=== PATIENT | female | born 1970 | race Hispanic/Latino ===

== ENCOUNTER 2021-09-23 11:11 | Emergency (ER) | payer BC ==
--- OUTSIDE RECORDS SUMMARY | 2021-09-23 11:14 | XMS REPORT | Continuity of Care Document ---
:1970 Author Organization [facility] t Address [address] [place] [address] Care Team Providers Name Role Phone JAMEE Attending Clinician Unavailable Olive Vasquez Attending Clinician Unavailable SURESH Attending Clinician Unavailable WENDI Attending Clinician Unavailable Olive Vasquez Admitting Clinician Unavailable Payers Payer Name Policy Type Policy Number Effective Date Expiration Date S ource Problems This patient has no known problems. Allergies, Adverse Reactions, Alerts Allergy Allergy Status Severity Reaction(s) Onset Inactive Treating Comm ents Source Name Type Date Date Clinician No Known DA Active U 2008-0 [facility] Contrast 5-15 Clear Allergie 00:00: Saini s [facility] No Known DA Active U 2008-0 [facility] Drug 5-15 Clear Allergie 00:00: Saini s [facility] No Known DA Active U 2008-0 [facility] Food 5-15 Clear Allergie 00:00: Saini s [facility] No Known DA Active U 2008-0 [facility] Other 5-15 Clear Allergie 00:00: Saini s [address] [place] [address] Medications This patient has no known medications. Procedures This patient has no known procedures. Encounters Start End Encounter Admission Attending Care Care Encounter Source Date/Time Date/Time Type Type Clinicians Facility Department ID 2021-09-17 2021-09-17 Outpatient [facility] [id number] [place] 00:00:00 00:00:[address] 2021-09-16 2021-09-16 Outpatient RHEA [facility] [id number] [place] 00:00:00 00:00:00 Maximo MANCERA [facility] [address] 2021-05-14 2021-05-14 Outpatient [facility] HCACL LORA HA1 [id number] [facility] 12:00:00 12:00:00 Aracelis gonzales [id number] [facility] 2020-12-01 2020-12-01 Outpatient CHRISTINA PRINCE [facility] [id number] [place] 00:00:00 00:00:[address] 2020-04-30 2020-04-30 Outpatient CHITTIMIRED [facility] [id number] [place] 00:00:00 00:00:00 DY, [address] 2020-04-14 2020-04-14 Outpatient [facility] HCABM LORA [id number] [facility] 12:00:00 12:00:00 Aracelis gonzales [id number] [facility] 2020-04-14 2020-04-14 Outpatient EL [facility] HCABM LORA HA1 [id number] [facility] 12:00:00 12:00:00 Aracelis gonzales [id number] [facility] 2019-12-18 2019-12-18 Outpatient CHRISTINA PRINCE [facility] [id number] [place] 00:00:00 00:00:[address] 2019-08-27 2019-08-27 Outpatient CHRISTINA PRINCE [facility] [id number] [place] 00:00:00 00:00:[address] Results Test Description Test Time Test Comments Results Result Sour e Comments - MAMMO SCR CAD BI 2017-07-20 07:05:00 [facility] 1970 Sex: F FAX: Aracelis Martins [phone] [place]: St: UN Name: GA MIRELESMAYOR Breast Diagnostic : 1970 Age/S: 46/F [address] Unit #: [id number] Loc: [place] [address] Phys: Aracelis Vasquez MD Acct: [id number] Dis Date: Status: UNK PHONE #: [phone] Exam Date: 07/19/2017 0853 FAX #: Reason: SCREENING EXAMS: CPT CODE: [id number] [place] [address] DIGITAL BILATERAL SCREENING MAMMOGRAM WITH CAD: HISTORY: 46 years old. Female. Previous fibrocystic changes.. COMPARISON STUDIES: Back to 2013. TECHNIQUE: 2D digital mammographic images with CAD. BREAST COMPOSITION: The breast tissue is heterogeneously dense, which may obscure small masses. FINDINGS: Stable mild fibrocystic changes in the left breast. No suspicious calcifications or suspicious masses are seen. IMPRESSION: BI-RADS Category 2: Benign findings. RECOMMENDATION: Bilateral screening mammogram in 1 year. THANK YOU FOR ALLOWING US TO PARTICIPATE IN THE CARE OF YOUR PATIENT. FO R INTERNAL CODING PURPOSES ONLY RESULT CODE: 2 FOLLOW UP: N SL: 106 at 0705 Reported and signed by: Alesia Castro M.D. CC: Aracelis Maradiaga Technologist: MITZY MODI)(M) Trnscrd Date/Time/By: 07/20/2017 (07) : By: SoilaBD Orig Print D/T: S: 07/20/2017 (0708) PAGE 1 Signed Report - US BRST W AX 2016-06-02 COMP UNI LT 09:51:00 [facility] [place] [facility] : 1970 Sex: F FAX: Aracelis Martins [phone] [place]: St: UNK Name: GA MIRELES Breast Diagnostic : 1970 Age/S: 45/F [address] Unit #: [id number] Loc: [place] [address] Phys: Aracelis Vasquez MD Acct: [id number] Dis Date: Status: [facility] PHONE #: [phone] Exam Date: 06/02/2016 0936 FAX #: Reason: LEFT BREAST ASYMMETRIES EXAMS: CPT CODE: [id number] [place] [address] DIGITAL LEFT DIAGNOSTIC MAMMOGRAM WITH CAD: HISTORY: 45-year-old asymptomatic female called back from April 2016 screening exam for further evaluation of left upper outer quadrant asymmetry. COMPARISON STUDIES: Dating back to 2010. BREAST COMPOSITION: The breast tissue is heterogeneously dense, which may obscure small masses. FINDINGS: Additional views demonstrate multiple oval masses with partially circumscribed and partially obscured margins in the upper outer left breast. Ultrasound to be performed for further evaluation. LEFT ULTRASOUND: FINDINGS: Left whole breast ultrasound was performed, including evaluation of all four quadrants of the breast, the retroareolar region, and the axilla. Special attention was made to the regions of the questioned mammographic findings. Left breast fibrocystic changes are identified, documented at 1 o'clock, 2 o'clock, and 7 o'clock. Sonographic findings correlate to mammographic findings. There are no suspicious sonographic findings in the left breast. Specifically, there are no suspicious findings in the regions of the questioned mammographic findings. The left axilla appears unremarkable. IMPRESSION: BI-RADS Category 2: Benign findings. RECOMMENDATION: Bilateral screening mammogram will be due April 2017. Results and recommendations were provided to the patient under direction of the physician at the conclusion of the exam. THANK YOU FOR ALLOWING US TO PARTICIPATE IN THE CARE OF YOUR PATIENT. FO R INTERNAL CODING PURPOSES ONLY RESULT CODE: 2 PAGE 1 Signed Report (CONTINUED) FAX: Aracelis Martins [phone] [place]: GO St: UNK Name: GA MIRELESMAYOR Breast Diagnostic : 1970 Age/S: 45/F [address] Unit #: [id number] Loc: [place] [address] Phys: Aracelis Vasquez MD Acct: [id number] Dis Date: Status: UNK PHONE #: [phone] Exam Date: 06/02/2016 0936 FAX #: Reason: LEFT BREAST ASYMMETRIES EXAMS: CPT CODE: [id number] [place] [address] <Continued> FOLLOW UP: N SL: 106 at 0951 Reported and signed by: Aide Lamar M.D. CC: Aracelis Maradiaga Technologist: Carolyn Bradley RDMS(BR)(AB) Trnscrd Date/Time/By: 06/02/2016 (0951) : By: [email or web address] Orig Print D/T: S: 06/02/2016 (0983) PAGE 2 Signed Report - MAMMO DIAG CAD 2016-06-02 UNI LT 09:51:00 [facility] [place] MI[facility]LES MARIALUISA : 1970 Sex: F FAX: Aracelis Martins [phone] [place]: DAILY St: [place] Name: GA MIRELES Breast Diagnostic : 1970 Age/S: 45/F [address] Unit #: [id number] Loc: [place] [address] Phys: Aracelis Vasquez MD Acct: [id number] Dis Date: Status: UNK PHONE #: [phone] Exam Date: 06/02/2016901 FAX #: Reason: LEFT ASYMMETRIES EXAMS: CPT CODE: [id number] [place] [address] DIGITAL LEFT DIAGNOSTIC MAMMOGRAM WITH CAD: HISTORY: 45-year-old asymptomatic female called back from April 2016 screening exam for further evaluation of left upper outer quadrant asymmetry. COMPARISON STUDIES: Dating back to 2010. BREAST COMPOSITION: The breast tissue is heterogeneously dense, which may obscure small masses. FINDINGS: Additional views demonstrate multiple oval masses with partially circumscribed and partially obscured margins in the upper outer left breast. Ultrasound to be performed for further evaluation. LEFT ULTRASOUND: FINDINGS: Left whole breast ultrasound was performed, including evaluation of all four quadrants of the breast, the retroareolar region, and the axilla. Special attention was made to the regions of the questioned mammographic findings. Left breast fibrocystic changes are identified, documented at 1 o'clock, 2 o'clock, and 7 o'clock. Sonographic findings correlate to mammographic findings. There are no suspicious sonographic findings in the left breast. Specifically, there are no suspicious findings in the regions of the questioned mammographic findings. The left axilla appears unremarkable. IMPRESSION: BI-RADS Category 2: Benign findings. RECOMMENDATION: Bilateral screening mammogram will be due April 2017. Results and recommendations were provided to the patient under direction of the physician at the conclusion of the exam. THANK YOU FOR ALLOWING US TO PARTICIPATE IN THE CARE OF YOUR PATIENT. FO R INTERNAL CODING PURPOSES ONLY RESULT CODE: 2 PAGE 1 Signed Report (CONTINUED) FAX: Aracelis Martins [phone] [place]: St: UNK Name: GA MIRELES MARIALUISA Breast Diagnostic : 1970 Age/S: 45/F [address] Unit #: [id number] Loc: [place] [address] Phys: Aracelis Vasquez MD Acct: [id number] Dis Date: Status: UNK PHONE #: [phone] Exam Date: 06/02/2016 0902 FAX #: Reason: LEFT ASYMMETRIES EXAMS: CPT CODE: [id number] [place] [address] <Continued> FOLLOW UP: N SL: 106 at 0951 Reported and signed by: Aide Lamar M.D. CC: Aracelis Maradiaga Technologist: RT Clif(Lakeshia)(Jose E) Trnscrd Date/Time/By: 06/02/2016 (950) : By: [email or web address] Orig Print D/T: S: 06/02/2016 (09) PAGE 2 Signed Report - MAMMO SCR DDI BI 2016-05-07 12:40:00 [facility] : 1970 Sex: F FAX: Aracelis Martins [phone] [place]: St: UNK Name: GA MIRELES Breast Diagnostic : 1970 Age/S: 45/F [address] Unit #: [id number] Loc: [place] [address] Phys: Aracelis Vasquez MD Acct: [id number] Dis Date: Status: UNK PHONE #: [phone] Exam Date: 05/05/2016 1011 FAX #: Reason: SCREENING EXAMS: CPT CODE: [id number] [place] [address] DIGITAL BILATERAL SCREENING MAMMOGRAM WITH CAD: HISTORY: 45 years old. Female. COMPARISON STUDIES: Dating back to 2007. TECHNIQUE: 2D digital mammographic images with CAD. BREAST COMPOSITION: The breast tissue is heterogeneously dense, which may obscure small masses. FINDINGS: Asymmetry seen in the middle to posterior one-third of left breast just lateral to midline in the craniocaudal view and in the upper middle one-third of left breast just above nipple line level in the MLO projection. No suspicious dominant mass lesions in the right breast. No suspicious calcifications either breast. IMPRESSION: (CATEGORY 0) Incomplete. Need additional Imaging evaluation . Left breast asymmetries requiring further evaluation. RECOMMENDATION: Additional diagnostic mammographic and/or ultrasound evaluation. [facility] will contact the patient to schedule additional imaging (pending orders from referring physician) THANK YOU FOR ALLOWING US TO PARTICIPATE IN THE CARE OF YOUR PATIENT. FO R INTERNAL CODING PURPOSES ONLY RESULT CODE: 0 FOLLOW UP: P SL: 106 at 1240 Reported and signed by: Alesia Castro M.D. PAGE 1 Signed Report (CONTINUED) FAX: Aracelis Martins [phone] [place]: St: UN Name: GA MIRELESMAYOR Breast Diagnostic : 1970 Age/S: 45/F [address] Unit #: [id number] Loc: [place] [address] Phys: Aracelis Vasquez MD Acct: [id number] Dis Date: Status: K PHONE #: [phone] Exam Date: 05/05/2016 1011 FAX #: Reason: SCREENING EXAMS: CPT CODE: [id number] [place] [address] <Continued> CC: Aracelis Maradiaga Technologist: Montserrat Clemons, RT(Lakeshia)(M) Trnscrd Date/Time/By: 05/07/2016 (9744) : By: Smith/Britt rig Print D/T: S: 05/07/2016 (3475) PAGE 2 Signed Report - MAMMO SCR DDI BI 2015-02-19 08:01:00 [facility] [place] [facility] : 1970 Sex: F FAX: Aracelis Martins [phone] [place]: St: UNK Name: GA MIRELES Breast Diagnostic : 1970 Age/S: 44/F [address] Unit #: [id number] Loc: [place] [address] Phys: Aracelis Vasquez MD Acct: [id number] Dis Date: Status: UNK PHONE #: [phone] Exam Date: 02/18/2015 1424 FAX #: Reason: SCREEN EXAMS: CPT CODE: [id number] [place] [address] DIGITAL SCREENING MAMMOGRAM EVALUATED WITH CAD: HISTORY: 44 years old. Female. Asymptomatic. COMPARISON STUDIES: Dating back to 2010. FINDINGS: The breast tissue is heterogeneously dense, which may obscure small masses. Bilateral oval masses with partially circumscribed and partially obscured margins consistent with previously sonographically documented fibrocystic changes. No suspicious calcifications or suspicious masses are seen. No significant interval change. IMPRESSION: BI-RADS Category 2: Benign findings. RECOMMENDATION: Bilateral screening mammogram in one year. THANK YOU FOR ALLOWING US TO PARTICIPATE IN THE CARE OF YOUR PATIENT. FO R INTERNAL CODING PURPOSES ONLY RESULT CODE: 2 FOLLOW UP: N SL: 106 at 0801 Reported and signed by: Aide Lamar M.D. CC: Aracelis Maradiaga Technologist: Shania Carvajal RT(R)(M)(BD) Trnksrd Date/Time/By: 02/19/2015 (800) : By: [email or web address] Orig Print D/T: S: 02/19/2015 (804) PAGE 1 Signed Report - MAMMO SCR DDI BI 2013-10-11 14:54:00 [facility] [place] [facility] : 1970 Sex: F FAX: Aracelis Martins [phone] [place]: St: [place] Name: GA MIRELES Breast Diagnostic : 1970 Age/S: 42/F [address] Unit #: [id number] Loc: [place] [address] Phys: Aracelis Vasquez MD Acct: [id number] Dis Date: Status: UNK PHONE #: [phone] Exam Date: 10/09/2013 0936 FAX #: Reason: SCREENING EXAMS: CPT CODE: [id number] [place] [address] DIGITAL SCREENING MAMMOGRAPHY WITH CAD. HISTORY: 42 years Female, Routine exam. COMPARISON: Back to 10/05/07 with the most recent mammogram of 07/18/12 FINDINGS: The breasts are heterogeneously dense, which may obscure small masses. No significant interval change. No suspicious masses, suspicious cluster of calcifications, or suspicious architectural distortion. IMPRESSION: (BI-RADS CATEGORY 1). Negative. RECOMMENDATION: Annual screening mammographic evaluation. PLEASE SEE BODY OF REPORT AND THANK YOU FOR ALLOWING US TO PARTICIPATE IN THE CARE OF YOUR PATIENT. FO R INTERNAL CODING PURPOSES ONLY RESULT CODE: 1 FOLLOW UP: N SL: 106 at 7649 Reported and signed by: Sanjay Ramos M.D. CC: Aracelis Maradiaga Technologist: Shania Carvajal RT(R)(M)(BD) Trnscrd Date/Time/By: 10/11/2013 (1457) : By: [email or web address] Orig Print D/T: S: 10/11/2013 (2709) PAGE 1 Signed Report - MAMMO SCR DDI BI 2012-07-18 11:32:00 [facility] SIRI MIRELESHERMES BAHENAMAYOR : 1970 Sex: F FAX: Thalia AlcantaraTracy Viraj [phone] [place]: St: UNK FAX: Y Aracelis Vasquez [phone] Name: GA MIRELES Breast Diagnostic : 1970 Age/S: 41/F [address] Unit #: [id number] Loc: [place] [address] Phys: Aracelis Vasquez MD Acct: [id number] Dis Date: Status: UNK PHONE #: [phone] Exam Date: 07/18/2012 1005 FAX #: Reason: SCREENING EXAMS: CPT CODE: [id number] [place] [address] DIGITAL SCREENING MAMMOGRAM EVALUATED WITH CAD: COMPARISON STUDIES: Dating back to 2007. FINDINGS: The breast tissue is heterogeneously dense (approximately 51-75% glandular), which could obscure detection of small masses. No suspicious calcifications or masses are seen. No significant interval change. IMPRESSION: BI-RADS CATEGORY 1: No radiographic evidence of malignancy -- negative. RECOMMENDATION: Bilateral screening mammogram in one year. THANK YOU FOR ALLOWING US TO PARTICIPATE IN THE CARE OF YOUR PATIENT. FO R INTERNAL CODING PURPOSES ONLY RESULT CODE: 1 FOLLOW UP: N at 1132 Reported and signed by: Aide Lamar M.D. CC: Tracy Fall; Aracelis Maradiaga Technologist: LY Beckwith)(Jose E) Trnscrd Date/Time/By: 07/18/2012 (3329) : By: [email or web address] Orig Print D/T: S: 07/18/2012 (9517) PAGE 1 Signed Report - US BREAST UNI/BI 2011-03-04 14:32:00 [facility] [place] [facility] : 1970 Sex: F FAX: Thalia AlcantaraTracy [phone] [place]: St: [facility] FAX: Aracelis Martins [phone] Name: GA MIRELES Breast Diagnostic : 1970 Age/S: 40/F [address] Unit #: [id number] Loc: [place] [address] Phys: Aracelis Vasquez MD Acct: [id number] Dis Date: Status: [employer] PHONE #: [phone] Exam Date: 03/04/2011 1323 FAX #: Reason: F/U TO ABNORMAL MAMMO EXAMS: CPT CODE: [id number] [place] [address] [id number] US BREAST UNI/BI 59930 HISTORY: 40-year-old female who is currently asymptomatic. Prior screening mammogram requested follow-up bilateral breast ultrasound. BILATERAL DIGITAL MAMMOGRAM EVALUATED WITH CAD. MAMMOGRAPHIC FINDINGS: Both breasts are dense. The architecture appears unchanged when compared to 10/05/07. No dominant mass or suspicious group of calcification is observed. ULTRASOUND FINDINGS: Sonography of both breasts shows numerous simple, complex, single and clustered cysts bilaterally. Several contain echogenic debris most likely representing inspissated material. No suspicious hypoechoic mass or solid nodule is observed. IMPRESSION: (Category 2) Benign finding. RECOMMENDATION: One year mammographic follow-up. PLEASE SEE BODY OF REPORT AND THANK YOU FOR ALLOWING US TO PARTICIPATE IN THE CARE OF YOUR PATIENT. at 1559 Reported and signed by: Magdalene Arias M.D. CC: Tracy Fall; Aracelis Maradiaga Technologist: Donnell Mclain, RT(R), RDMS(BR); ... Trnscrd Date/Time/By: 03/04/2011 (1447) : By: Maxine/Kera rig Print D/T: S: 03/04/2011 (1603) PAGE 1 Signed Report - MAMMO DIAG DDI 2011-03-04 14:32:00 [facility] [place] MIRELESMAYOR : 1970 Sex: F FAX: Thalia AlcantaraTracy Viraj [phone] [place]: St: UNK FAX: Aracelsi Martins [phone] Name: GA MIRELESMAYOR Breast Diagnostic : 1970 Age/S: 40/F [address] Unit #: [id number] Loc: [place] [address] Phys: Aracelis Vasquez MD Acct: [id number] Dis Date: Status: UNK PHONE #: [phone] Exam Date: 03/04/2011 1323 FAX #: Reason: F/U TO ABNORMAL MAMMO EXAMS: CPT CODE: [id number] [place] [address] [id number] US BREAST UNI/BI [address]66 HISTORY: 40-year-old female who is currently asymptomatic. Prior screening mammogram requested follow-up bilateral breast ultrasound. BILATERAL DIGITAL MAMMOGRAM EVALUATED WITH CAD. MAMMOGRAPHIC FINDINGS: Both breasts are dense. The architecture appears unchanged when compared to 10/05/07. No dominant mass or suspicious group of calcification is observed. ULTRASOUND FINDINGS: Sonography of both breasts shows numerous simple, complex, single and clustered cysts bilaterally. Several contain echogenic debris most likely representing inspissated material. No suspicious hypoechoic mass or solid nodule is observed. IMPRESSION: (Category 2) Benign finding. RECOMMENDATION: One year mammographic follow-up. PLEASE SEE BODY OF REPORT AND THANK YOU FOR ALLOWING US TO PARTICIPATE IN THE CARE OF YOUR PATIENT. at 1559 Reported and signed by: Magdalene Arias M.D. CC: Tracy Fall; Aracelis Maradiaga Technologist: Donnell Mclain, RT(R), JUSTIN(BR); ... Trnscrd Date/Time/By: 03/04/2011 (1445) : By: Maxine/Kera rig Print D/T: S: 03/04/2011 (1895) PAGE 1 Signed Report - MAMMO SCR DDI BI 2007-10-06 16:22:00 [facility] : 1970 Sex: F FAX: Aracelis Martins [phone] [place]: St: UNK Name: GA MIRELES Breast Diagnostic : 1970 Age/S: 36/F [address] Unit #: [id number] Loc: [place] [address] Phys: Aracelis Vasquez MD Acct: [id number] Dis Date: Status: UNK PHONE #: [phone] Exam Date: 10/05/2007 1013 FAX #: Reason: SCREEN EXAMS: CPT CODE: [id number] [place] [address] Digital screening mammogram evaluated with CAD History: Asymptomatic Findings: There is extremely dense glandular tissue. This could obscure a lesion on mammography. There appear to be, bilateral obscured nodular densities in each breast. No suspicious clusters of calcifications or suspicious mass lesions. IMPRESSION: (CATEGORY 0) Incomplete. Bilateral obscured nodular densities. RECOMMENDATION: Bilateral breast ultrasound. PLEASE SEE BODY OF REPORT AND THANK YOU FOR ALLOWING US TO PARTICIPATE IN THE CARE OF YOUR PATIENT. at 3528 Reported and signed by: Alesia Castro M.D. CC: Aracelis Maradiaga Technologist: LY Menezes)(Jose E) Trnksrd Date/Time/By: 10/06/2007 (2512) : By: Marsha/Angelina carrasco Print D/T: S: 10/08/2007 (1355) PAGE 1 Signed Report
[2021-09-23] MEDS ORDERED: NA CHLORIDE 0.9% 100 ML IV ONE (12:05)
[2021-09-23] MEDS ORDERED: CIPROFLOXACIN 400mg IV 400 MG/200 ML BAG IV ONE (12:05)
[2021-09-23] MEDS ORDERED: CEFTRIAXONE 1000 MG/VIAL ONE (12:05)
[2021-09-23] MEDS ORDERED: NA CHLORIDE 0.9% 1,000 ML ONE (12:05)
[2021-09-23] MEDS ORDERED: ACETAMINOPHEN 500 MG TAB ONE (12:05)
[2021-09-23 12:22] LABS: Absolute Lymphocytes (CBC) 0.2 K/uL (0.7-4.9); Hematocrit 44.8 % (36.0-45.0); MPV 8.4 fL (7.6-11.3); RBC Red Blood Cell Count 4.78 M/uL (3.86-4.86)
[2021-09-23 12:26] LABS: Urine Bacteria >50 /HPF (<20); Urine Mucus LIGHT /HPF (NONE SEEN); Urine RBC <5 /HPF (NONE SEEN)
[2021-09-23 12:33] LABS: Potassium 3.7 mmol/L (3.5-5.1)
[2021-09-23 13:42] LABS: Blood Morphology Comment NOT SEEN (NOT SEEN); Platelet Estimate ADEQ; White Blood Cell Scan OK (OK)
--- NOTE | 2021-09-23 14:38 | ER ---
Nurse's Notes [facility] Name: Candis Stallings Age: 50 yrs Sex: Female : 1970 Arrival Date: 09/23/2021 Time: 11:12 Bed 6 Private MD: Diagnosis: UTI/ Urinary tract infection, site not specified Presentation: 09/23 11:33 Chief complaint: Patient states: UTI symptoms x 2 weeks, started Cipro yesterday and jl7 started having back pain, HUYNH and shaking 2 hours post medication. Coronavirus screen: At this time, the client does not indicate any symptoms associated with coronavirus-19. Ebola Screen: No symptoms or risks identified at this time. Initial Sepsis Screen: Does the patient meet any 2 criteria? No. Patient's initial sepsis screen is negative. Does the patient have a suspected source of infection? No. Patient's initial sepsis screen is negative. Risk Assessment: Do you want to hurt yourself or someone else? Patient reports no desire to harm self or others. Onset of symptoms was September 22, 2021. 11:33 Method Of Arrival: Ambulatory [facility] 11:33 Acuity: MARYSE 3 jl7 Triage Assessment: 11:34 General: Appears in no apparent distress. uncomfortable, Behavior is cooperative, jl7 appropriate for age, anxious. Pain: Complains of pain in back and HUYNH Pain currently is 8 out of 10 on a pain scale. Neuro: Level of Consciousness is awake, alert, obeys commands, Oriented to person, place, time, situation. Cardiovascular: Patient's skin is warm and dry. Respiratory: Airway is patent Respiratory effort is even, unlabored, Respiratory pattern is regular, symmetrical. Musculoskeletal: Range of motion: intact in all extremities. 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 - Social history:: Smoking status: Patient denies any tobacco usage or history of. - Family history:: not pertinent. - Hospitalizations: : No recent hospitalization is reported. Screenin:28 Abuse screen: Denies threats or abuse. Denies injuries from another. Nutritional ph screening:. Tuberculosis screening: No symptoms or risk factors identified. Fall Risk None identified. Assessment: 12:27 General: Appears in no apparent distress. comfortable, well groomed, Behavior is calm, ph cooperative, appropriate for age, Reports chills for fever for 1-2 days. Pain: Complains of pain in back. Neuro: Kohler Agitation-Sedation Scale (RASS): 0 - Alert and Calm Level of Consciousness is awake, alert, obeys commands, Oriented to person, place, time, situation. Cardiovascular: Capillary refill < 3 seconds in bilateral fingers Patient's skin is warm and dry. Respiratory: Airway is patent Respiratory effort is even, unlabored. GI: Reports nausea. : Reports burning with urination, urinary frequency. Derm: Skin is intact, is healthy with good turgor, Skin is pink, warm \T\ dry. Musculoskeletal: Circulation, motion, and sensation intact. Range of motion: intact in all extremities. 13:31 Reassessment: Patient and/or family updated on plan of care and expected duration. Pain jh6 level reassessed. Patient is alert, oriented x 3, equal unlabored respirations, skin warm/dry/pink. Patient states feeling better. Patient states symptoms have improved. General: Appears in no apparent distress. comfortable. General: PT STATES THAT HUYNH IS NOT LONGER PRESENT BUT IS STILL HAVING SOME PAIN TO LOWER BACK. Pain: Complains of pain in low back area Pain currently is 4 out of 10 on a pain scale. 15:01 Reassessment: Patient is alert, oriented x 3, equal unlabored respirations, skin jh6 warm/dry/pink. Patient states feeling better. Patient states symptoms have improved. Pain: Complains of pain in low back area Pain currently is 3 out of 10 on a pain scale. Vital Signs: 11:33 BP 148 / 75; Pulse 104; Resp 19; Temp 100.8; Pulse Ox 100% on R/A; Weight 81.65 kg; jl7 Height 5 ft. 6 in. (167.64 cm); Pain 8/10; 12:16 BP 157 / 53; Pulse 102; Resp 18; Temp 101.2(O); Pulse Ox 100% ; jh6 12:29 BP 136 / 78; Pulse 98; Resp 18; Pulse Ox 98% on R/A; ph 13:32 BP 114 / 69; Pulse 85; Resp 17; Temp 100.6(O); Pulse Ox 100% ; Pain 3/10; jh6 11:33 Body Mass Index 29.05 (81.65 kg, 167.64 cm) 7 ED Course: 11:12 Patient arrived in ED. as 11:27 Broderick Lima MD is Attending Physician. rn 11:31 Richelle Vidales RN is Primary Nurse. ph 11:34 Triage completed. jl7 11:34 Arm band placed on right wrist. jl7 12:16 Inserted saline lock: 20 gauge in right antecubital area, using aseptic technique. 6 Blood collected. 12:28 Patient has correct armband on for positive identification. Bed in low position. Call ph light in reach. Side rails up X 1. ekg monitor on. Pulse ox on. Door closed. Noise minimized. Warm blanket given. 14:28 No provider procedures requiring assistance completed. ph 15:01 IV discontinued, intact, bleeding controlled, No redness/swelling at site. Pressure [facility] dressing applied. Administered Medications: 12:10 Drug: Tylenol 1000 mg Route: PO; 6 14:27 Follow up: Response: No adverse reaction ph 12:15 Drug: NS 0.9% 1000 ml Route: IV; Rate: 1000 ml; Site: right antecubital; [facility] 14:30 Follow up: Response: No adverse reaction; IV Status: Completed infusion; IV Intake: ph 1000ml 12:15 Drug: Rocephin (cefTRIAXone) 1 grams Route: IV; Rate: calculated rate; Site: right [facility] antecubital; 14:28 Follow up: Response: No adverse reaction; IV Status: Completed infusion ph 12:38 Drug: Cipro (ciprofloxacin) 400 mg Volume: 200 ml; Route: IVPB; Infused Over: 60 mins; ph Site: right antecubital; 13:45 Follow up: Response: No adverse reaction; IV Status: Completed infusion ph Intake: 14:30 IV: 1000ml; Total: 1000ml. ph Outcome: 14:38 Discharge ordered by . rn 15:00 Discharged to home ambulatory. [facility] 15:00 Condition: improved 15:00 Discharge instructions given to patient, Instructed on discharge instructions, Demonstrated understanding of instructions, follow-up care, medications, Prescriptions given X 1. 15:03 Patient left the ED. jh6 Signatures: Ya Jesus Roman, MD MD rn Richelle Vidales RN RN ph Tai Bradley RN RN jl7 Kristan Gill RN RN jh6 Corrections: (The following items were deleted from the chart) 12:29 12:28 BP 139 / 87; Pulse 57bpm; Resp 18bpm; Pulse Ox 99% RA; ph ph
--- NOTE | 2021-09-23 14:38 | EDPHYS ---
Physician Documentation [facility] Name: Candis Stallings Age: 50 yrs Sex: Female : 1970 Arrival Date: 09/23/2021 Time: 11:12 Bed 6 Private MD: ED Physician Broderick Lima HPI: 09/23 14:24 This 50 yrs old Female presents to ER via Ambulatory with complaints of Back rn Pain, Urinary Problem, shaky. 14:24 The patient presents with urinary symptoms, dysuria, frequency, urgency. Onset: The rn symptoms/episode began/occurred 1 week(s) ago. Modifying factors: The symptoms are alleviated by nothing, the symptoms are aggravated by urinating. Associated signs and symptoms: Pertinent positives: fever, nausea, chills. Severity of symptoms: At their worst the symptoms were moderate, in the emergency department the symptoms are unchanged. The patient has not experienced similar symptoms in the past. The patient has been recently seen by a physician:. Pt reports fever/chills/shaky for 1 day, diagnosed with UTI recently and just started abx yesterday. Put on cipro after culture obtained. Reports nausea but no vomiting. No flank or abd pain.. 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 - Social history:: Smoking status: Patient denies any tobacco usage or history of. - Family history:: not pertinent. - Hospitalizations: : No recent hospitalization is reported. ROS: 14:24 Constitutional: + fever and chills Eyes: Negative for injury, pain, redness, and internal control manager, Neck: Negative for injury, pain, and swelling, Cardiovascular: Negative for chest pain, palpitations, and edema, Respiratory: Negative for shortness of breath, cough, wheezing, and pleuritic chest pain, Abdomen/GI: Negative for abdominal pain, vomiting, diarrhea, and constipation, Back: + lower back pain : + dysuria and urgency MS/Extremity: Negative for injury and deformity, Skin: Negative for injury, rash, and discoloration, Neuro: Negative for headache, weakness, numbness, tingling, and seizure. Exam: 14:31 Constitutional: This is a well developed, well nourished patient who is awake, alert, rn shaking Head/Face: Normocephalic, atraumatic. Eyes: Pupils equal round and reactive to light, extra-ocular motions intact. Lids and lashes normal. Conjunctiva and sclera are non-icteric and not injected. Cornea within normal limits. Periorbital areas with no swelling, redness, or edema. Cardiovascular: Tachycardic, regular Respiratory: No increased work of breathing, no retractions or nasal flaring. Abdomen/GI: Soft, non-tender Back: No spinal tenderness. No costovertebral tenderness. Full range of motion. Skin: Warm, dry MS/ Extremity: Pulses equal, no cyanosis. Neuro: Awake and alert, GCS 15 Vital Signs: 11:33 BP 148 / 75; Pulse 104; Resp 19; Temp 100.8; Pulse Ox 100% on R/A; Weight 81.65 kg; 7 Height 5 ft. 6 in. (167.64 cm); Pain 8/10; 12:16 BP 157 / 53; Pulse 102; Resp 18; Temp 101.2(O); Pulse Ox 100% ; jh6 12:29 BP 136 / 78; Pulse 98; Resp 18; Pulse Ox 98% on R/A; ph 13:32 BP 114 / 69; Pulse 85; Resp 17; Temp 100.6(O); Pulse Ox 100% ; Pain 3/10; jh6 11:33 Body Mass Index 29.05 (81.65 kg, 167.64 cm) [facility] MDM: 11:27 Patient medically screened. rn 14:31 Differential diagnosis: urinary tract infection, pyelonephritis, UTI. Data reviewed: rn vital signs, nurses notes, lab test result(s), and as a result, I will discharge patient. Counseling: I had a detailed discussion with the patient and/or guardian regarding: the historical points, exam findings, and any diagnostic results supporting the discharge/admit diagnosis, lab results, the need for outpatient follow up, to return to the emergency department if symptoms worsen or persist or if there are any questions or concerns that arise at home. Response to treatment: the patient's symptoms have markedly improved after treatment, and as a result, I will discharge patient. Special discussion: I discussed with the patient/guardian in detail that at this point there is no indication for admission to the hospital. It is understood, however, that if the symptoms persist or worsen the patient needs to return immediately for re-evaluation. ED course: Fever and vitals improved, feels much better, normal WBC and normal lactate. Minimal elevation of procalcitonin. Will dc home with continuation of abx given patient states was written based off of culture results. Return precautions given and understood. . 09/23 11:38 Order name: CBC with Diff; Complete Time: 14:19 rn 09/23 11:38 Order name: Basic Metabolic Panel; Complete Time: 13:17 rn 09/23 11:38 Order name: Urine Culture rn 09/23 11:38 Order name: Urine Microscopic Only; Complete Time: 13:17 rn 09/23 11:38 Order name: Procalcitonin; Complete Time: 14:19 rn 09/23 11:38 Order name: Lactate; Complete Time: 13:17 rn 09/23 11:38 Order name: IV Start; Complete Time: 12:15 rn 09/23 11:38 Order name: Urine Dipstick-Ancillary (obtain specimen); Complete Time: 12:15 rn 09/23 11:38 Order name: Blood Culture Adult (2) rn 09/23 12:30 Order name: CBC Smear Scan; Complete Time: 14:19 EDMS Administered Medications: 12:10 Drug: Tylenol 1000 mg Route: PO; [facility] 14:27 Follow up: Response: No adverse reaction ph 12:15 Drug: NS 0.9% 1000 ml Route: IV; Rate: 1000 ml; Site: right antecubital; [facility] 14:30 Follow up: Response: No adverse reaction; IV Status: Completed infusion; IV Intake: ph 1000ml 12:15 Drug: Rocephin (cefTRIAXone) 1 grams Route: IV; Rate: calculated rate; Site: right [facility] antecubital; 14:28 Follow up: Response: No adverse reaction; IV Status: Completed infusion ph 12:38 Drug: Cipro (ciprofloxacin) 400 mg Volume: 200 ml; Route: IVPB; Infused Over: 60 mins; ph Site: right antecubital; 13:45 Follow up: Response: No adverse reaction; IV Status: Completed infusion ph Disposition Summary: 09/23/21 14:38 Discharge Ordered Location: Home rn Problem: new rn Symptoms: have improved rn Condition: Stable rn Diagnosis - UTI/ Urinary tract infection, site not specified rn Followup: rn - With: Private Physician - When: 1 - 2 days - Reason: Recheck today's complaints, Re-evaluation by your physician Discharge Instructions: - Urinary Tract Infection, Adult rn - Discharge Summary Sheet jh7 Forms: - Medication Reconciliation Form rn - Thank You Letter rn - Antibiotic electrical 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
[2021-09-23 15:30] VITALS: BP 114/69; TEMP 100.6; O2SAT 100
[2021-09-28 12:59] LABS: Urine Blood Negative (Negative); Urine Glucose Trace (Negative); Urine Protein 2+ (Negative); Urine Specific Gravity 1.025 (1.005-1.030)
== END 2021-09-23 15:03 | disposition home or self-care (01) ==
LOC: ER 11:11
DX: N39.0 Urinary tract infection, site not specified (principal)
CPT/HCPCS: 96365; 87040 ×2; 87088; 85025; 87086; 80048; 36415; 83605; 81015; 84145; 99284; J7030; J0744; 81003